=== PATIENT | male | born 1960 | race Caucasian/White ===

== ENCOUNTER 2017-09-13 14:34 | Emergency (ER) | payer BC, OTHER ==
[2017-09-13] MEDS ORDERED: Rabies Immune Globulin 10 ML* 150 UNIT/ML VIAL IM ONE ×2 (15:33→15:44)
[2017-09-13] MEDS ORDERED: Rabies VIRUS VACCINE (Imovax)* 2.5 UNIT/ML 1 ML IM ONE (15:33)
[2017-09-13] MEDS ORDERED: Rabies Immune Globulin 2 ML* 150 UNITS/ML VIAL IM ONE (15:42)
[2017-09-13] MEDS ORDERED: Tetan/Diph/Pertus SYR(Tdap)* 0.5 ML SYR(BOOSTRIX) use SYR IM ONE (15:45)
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
[2017-09-13 15:55] VITALS: BP 122/77
== END 2017-09-13 16:20 | disposition home or self-care (01) ==
LOC: UCEAST 14:34
DX: Z20.3 Contact with and (suspected) exposure to rabies (principal); Z29.14 Encounter for prophylactic rabies immune globulin
CPT/HCPCS: 90375; 90471; 90472; 90715; 96372; 99201; G0463

== ENCOUNTER 2017-09-16 16:37 | Emergency (ER) | payer BC ==
[2017-09-16 17:08] VITALS: BP 148/70
[2017-09-16] MEDS ORDERED: Rabies Immune Globulin 2 ML* 150 UNITS/ML VIAL IM ONE (17:14)
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
== END 2017-09-16 17:35 | disposition home or self-care (01) ==
LOC: UCEAST 16:37
DX: Z20.3 Contact with and (suspected) exposure to rabies (principal); Z29.14 Encounter for prophylactic rabies immune globulin
CPT/HCPCS: 90375; 99211; G0463

== ENCOUNTER 2018-06-09 08:55 | Emergency (ER) | payer BC ==
[2018-06-09 09:16] VITALS: BP 123/93
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
== END 2018-06-09 09:48 | disposition home or self-care (01) ==
LOC: UCCORT 08:55
DX: S80.812A Abrasion, left lower leg, initial encounter (principal); W22.8XXA Striking against or struck by other objects, initial encounter; Y92.9 Unspecified place or not applicable; Z88.3 Allergy status to other anti-infective agents
CPT/HCPCS: 99212; G0463